=== PATIENT | male | born 1995 | race Caucasian/White ===

== ENCOUNTER 2023-06-06 23:52 | Emergency (ER) | payer OTHER, SELFPAY ==
--- NOTE | ~2023-06-06 | XR_ITS ---
EXAMINATION: XR ELBOW, RIGHT XR WRIST, RIGHT XR HAND, RIGHT CLINICAL INFORMATION: Pain. Injury. COMPARISON: None TECHNIQUE: AP, oblique, and lateral views of the right elbow. PA, lateral, and oblique views of the right wrist and PA, lateral, and oblique views of the right hand FINDINGS: RIGHT ELBOW: No fracture or malalignment. Bone mineralization is normal. No elbow joint effusion. Joint spaces are well-preserved. Soft tissues are unremarkable. RIGHT WRIST: The bones and soft tissues are normal. No fracture. Alignment is anatomic. Joint spaces are maintained. No erosions or soft tissue calcifications. RIGHT HAND: The bones and soft tissues are normal. No fracture. Alignment is anatomic. Joint spaces are maintained. No erosions or soft tissue calcifications. XR/XR wrist RT min 3V IMPRESSION: No acute fracture or malalignment in the right elbow, wrist, and hand.
--- NOTE | ~2023-06-06 | XR_ITS ---
EXAMINATION: XR ELBOW, RIGHT XR WRIST, RIGHT XR HAND, RIGHT CLINICAL INFORMATION: Pain. Injury. COMPARISON: None TECHNIQUE: AP, oblique, and lateral views of the right elbow. PA, lateral, and oblique views of the right wrist and PA, lateral, and oblique views of the right hand FINDINGS: RIGHT ELBOW: No fracture or malalignment. Bone mineralization is normal. No elbow joint effusion. Joint spaces are well-preserved. Soft tissues are unremarkable. RIGHT WRIST: The bones and soft tissues are normal. No fracture. Alignment is anatomic. Joint spaces are maintained. No erosions or soft tissue calcifications. RIGHT HAND: The bones and soft tissues are normal. No fracture. Alignment is anatomic. Joint spaces are maintained. No erosions or soft tissue calcifications. XR/XR elbow RT min 3V IMPRESSION: No acute fracture or malalignment in the right elbow, wrist, and hand.
--- NOTE | ~2023-06-06 | XR_ITS ---
EXAMINATION: XR ELBOW, RIGHT XR WRIST, RIGHT XR HAND, RIGHT CLINICAL INFORMATION: Pain. Injury. COMPARISON: None TECHNIQUE: AP, oblique, and lateral views of the right elbow. PA, lateral, and oblique views of the right wrist and PA, lateral, and oblique views of the right hand FINDINGS: RIGHT ELBOW: No fracture or malalignment. Bone mineralization is normal. No elbow joint effusion. Joint spaces are well-preserved. Soft tissues are unremarkable. RIGHT WRIST: The bones and soft tissues are normal. No fracture. Alignment is anatomic. Joint spaces are maintained. No erosions or soft tissue calcifications. RIGHT HAND: The bones and soft tissues are normal. No fracture. Alignment is anatomic. Joint spaces are maintained. No erosions or soft tissue calcifications. XR/XR hand RT min 3V IMPRESSION: No acute fracture or malalignment in the right elbow, wrist, and hand.
[2023-06-06 23:58] VITALS: BP 135/79; PULSE 75; RESP 16; TEMP 37.1; O2SAT 97; BMI 24.4
--- NOTE | 2023-06-07 00:18 | ED_ITS ---
HPI - Extremity Problem General Chief complaint: Extremity Injury, Upper Stated complaint: hand inj, punched wall Time Seen by Provider: 06/07/23 00:12 Source: patient, family and RN notes reviewed Mode of arrival: ambulatory Limitations: no limitations History of Present Illness HPI Narrative: This is a 28-year-old male, with no known medical problems, presenting to the emergency department with complaints of right hand and wrist pain status post punching a wall 1 hour ago. Patient states that he was upset and punched a wall 3 times. He immediately had pain in his right hand and right wrist. He states that the pain is constant and radiates into his right elbow. Denies history of hand or wrist fractures in the past. Denies taking any medications prior to his arrival. He is right handed. No other complaints or concerns at this time. MD Complaint: extremity pain Onset (ago): hour(s) Pain Consistency: constant Location: upper extremity Quality: aching Radiation: none Relieving factors: nothing Exacerbating factors: nothing Associated symptoms: denies other symptoms Related Data Previous Rx's Medication Instructions Recorded acetaminophen 500 mg tablet 500 mg PO Q6H PRN pain #30 tabs 06/07/23 (Tylenol Extra Strength) ibuprofen 600 mg tablet 600 mg PO Q6H PRN pain #30 tabs 06/07/23 Allergies Allergy/AdvReac Type Severity Reaction Status Date / Time No Known Allergies Allergy Verified 06/07/23 00:11 Review of Systems Review of Systems: Yes all other systems are reviewed and are negative [facility] Social History Social History Smoked in Last 30 Days: No Use of substances other than those prescribed or required for medical reasons: No Advance Directives: No Advance Directives Information Provided: No Physical Exam Vital Signs: Vital Signs: Last Vital Signs Temp 98.2 F 06/07/23 00:37 Pulse 62 06/07/23 00:37 Resp 18 06/07/23 00:37 BP 102/74 06/07/23 00:37 Pulse Ox 97 06/07/23 00:37 O2 Del Method Room Air 06/07/23 00:37 BMI result Body Mass Index 24.4 Const: Other: General: Awake, alert, and oriented X3. No acute distress. HEENT: Normal inspection CVS: Normal heart rate and rhythm. Pulses normal. Respiratory: No respiratory distress Skin: Warm, dry, no rashes noted to exposed skin. Normal skin color. Normal skin turgor. Extremities: Tenderness palpation along the right 3rd,4th, and5th metacarpal. Decreased range of motion of the right wrist secondary to pain. Able to flex and extend at all digits. Radial pulse 2 +. Distal sensation circulation intact. Right elbow nontender, full range of motion of the right elbow and right shoulder. Neuro: Oriented X 3. No motor deficit. No sensory deficit. Course Reevaluation(s) Reevaluation #1: Girlfriend had to be escorted out given poor behavior in the emergency room. X- rays were pending, I reviewed these x-rays with my attending physician, revealing no acute fracture. Placed hand and wrist an Brandon wrap, discharged on ibuprofen and Tylenol, and given orthopedic follow-up if pain in wrist and hand persist. Patient understands and agrees with plan. Given return precautions. Patient stable for discharge. Time: 01:29 Medications Administered Discontinued Medications Generic Name Dose Route Start Last Admin Trade Name Mylesq PRN Reason Stop Dose Admin Acetaminophen 975 mg 06/07/23 00:17 06/07/23 00:36 Acetaminophen 325 Mg Tablet PO 06/07/23 00:18 975 mg ONCE ONE Administration Medical Decision Making Medical Decision Making MDM Narrative: This is a 28-year-old male presenting to the emergency department with complaints of right hand and right wrist pain status post punching a wall earlier this evening. On arrival, vital signs within normal limits. Patient has tenderness palpation along the 3rd 4th and 5th metacarpal bones. Decreased range of motion of the right wrist. No snuffbox tenderness. Plan: Tylenol 1 g p.o., x-rays Differential Diagnosis Differential Diagnoses: The differential diagnosis associated with the presentation includes Fracture, strain, sprain, contusion Independent Interpretation I performed an independent interpretation of an: Plain X-Ray Interpretation: EXAMINATION: XR ELBOW, RIGHT XR WRIST, RIGHT XR HAND, RIGHT CLINICAL INFORMATION: Pain. Injury. COMPARISON: None TECHNIQUE: AP, oblique, and lateral views of the right elbow. PA, lateral, and oblique views of the right wrist and PA, lateral, and oblique views of the right hand FINDINGS: RIGHT ELBOW: No fracture or malalignment. Bone mineralization is normal. No elbow joint effusion. Joint spaces are well-preserved. Soft tissues are unremarkable. RIGHT WRIST: The bones and soft tissues are normal. No fracture. Alignment is anatomic. Joint spaces are maintained. No erosions or soft tissue calcifications. RIGHT HAND: The bones and soft tissues are normal. No fracture. Alignment is anatomic. Joint spaces are maintained. No erosions or soft tissue calcifications. XR/XR wrist RT min 3V IMPRESSION: No acute fracture or malalignment in the right elbow, wrist, and hand. Discharge Plan Discharge Clinical Impression: Contusion of hand, right Patient Disposition: Home, Self-Care Instructions: Contusion in Adults (ED) Additional Instructions: You were seen in the ER after punching a wall Your xrays did not show any broken bones. Please rest, ice, use brandon wrap, and elevate your hand. Take ibuprofen and Tylenol as needed for pain and symptoms. If you continue to have symptoms and pain in your right hand over 2 weeks, you can follow-up with Orthopedics, call to make an appointment. If any new or worsening symptoms occur including but not limited to decreased range of motion of your hand, increased redness, swelling, please return for re- evaluation. Prescriptions: New acetaminophen [Tylenol Extra Strength] 500 mg tablet 500 mg PO Q6H PRN (Reason: pain) Qty: 30 0RF ibuprofen 600 mg tablet 600 mg PO Q6H PRN (Reason: pain) Qty: 30 0RF Referrals: [facility] [place] [facility] [Provider Group] Interventions: ED Discharge Assessment Last Done: 06/07/23 01:17 Discharge Date/Time: 06/07/23 01:18
[2023-06-07] MEDS: Acetaminophen 325 MG TABLET 975 MG PO (00:36)
[2023-06-07 00:37] VITALS: BP 102/74; PULSE 62; RESP 18; TEMP 36.8; O2SAT 97
--- NOTE | 2023-06-07 00:44 | PC.NURSE ---
PT alert and oriented, calm cooperative in no acute distress. PT reportedly punched wall x2 with right hand in anger. PT endorsing 8/10 Right hand pain. Medicated as per JUL. Awaiting xray reading. call grimaldo within reach. plan of care ongoing.
== END 2023-06-07 01:18 | disposition home or self-care (01) ==
PROVIDERS: Emergency Provider Emergency Medicine
DX: S60.221A Contusion of right hand, initial encounter (principal); W22.09XA Striking against other stationary object, initial encounter; Y93.89 Activity, other specified; Y92.9 Unspecified place or not applicable; Y99.9 Unspecified external cause status
CPT/HCPCS: 73080; 73110; 73130; 99283; 99284